=== PATIENT | female | born 1995 | race Caucasian/White ===

== ENCOUNTER 2017-10-26 14:07 | Emergency (ER) | payer BC, MEDICAID, OTHER ==
[~2017-10-26] VITALS: Ht 160 cm; Wt 63.0 kg
[2017-10-26] MEDS ORDERED: CHLORDIAZEPOXIDE 25 MG CAPSULE PO ONE (15:00)
[2017-10-26 15:19] LABS: BASOPHILS # (AUTO) 0.05 x10^3/uL (0-0.3); BASOPHILS % (AUTO) 1 % (0-1); EOSINOPHILS # (AUTO) 0.08 x10^3/uL (0-0.8); EOSINOPHILS % (AUTO) 1 % (1-7); LYMPHOCYTES # (AUTO) 2.61 x10^3/uL (1-6.1); LYMPHOCYTES % (AUTO) 45 % (22-44); MD NO; MEAN CORPUSCULAR HEMOGLOBIN 25.3 pg (27.0-34.8); MEAN CORPUSCULAR HGB CONC 32.5 g/dL (32.4-35.8); MEAN CORPUSCULAR VOLUME 78.1 fL (80-100); MONOCYTES # (AUTO) 0.47 x10^3/uL (0-1.4); MONOCYTES % (AUTO) 8 % (2-9); NEUTROPHILS # (AUTO) 2.64 x10^3/uL (1.8-8.0); NEUTROPHILS % (AUTO) 45 % (42-75); PLATELET COUNT 346 x10^3/uL (130-400); RED BLOOD COUNT 4.77 x10^6/uL (3.82-5.3); RED CELL DISTRIBUTION WIDTH 17.8 % (9.6-15.2)
[2017-10-26] MEDS ORDERED: CHLORDIAZEPOXIDE 25 MG CAPSULE ONE (15:31)
[2017-10-26 15:32] LABS: ALANINE AMINOTRANSFERASE 20 U/L (12-78); ALBUMIN 3.9 g/dL (3.4-5.0); ANION GAP 6 mmol/L (5-15); CALCIUM 8.7 mg/dL (8.5-10.1); CHLORIDE 109 mmol/L (98-107); CREATININE 0.92 mg/dL (0.55-1.02)
[2017-10-26 15:36] LABS: ALKALINE PHOSPHATASE 97 U/L (45-117); BILIRUBIN,TOTAL 0.2 mg/dL (0.2-1.0)
[2017-10-26 18:19] VITALS: BP 97/52
== END 2017-10-26 18:55 | disposition home or self-care (01) ==
LOC: ED 17:53
DX: F10.129 Alcohol abuse with intoxication, unspecified (principal); F19.10 Other psychoactive substance abuse, uncomplicated; Z79.899 Other long term (current) drug therapy
CPT/HCPCS: 36415; 80053; 80307; 84703; 85025; 99284

== ENCOUNTER 2018-01-16 15:40 | Emergency (ER) | payer MEDICAID ==
[~2018-01-16] VITALS: Ht 160 cm; Wt 69.9 kg
[2018-01-16 18:40] VITALS: BP 117/69
== END 2018-01-16 19:15 | disposition home or self-care (01) ==
LOC: ED 17:48
DX: O03.9 Complete or unspecified spontaneous abortion without complication (principal); F17.200 Nicotine dependence, unspecified, uncomplicated
CPT/HCPCS: 36415; 76801; 84702; 86850; 86900; 99285; J2790

== ENCOUNTER 2018-04-06 15:54 | Emergency (ER) | payer MEDICAID ==
[~2018-04-06] VITALS: Ht 160 cm; Wt 71.3 kg
[2018-04-06 15:59] VITALS: BP 119/77
[2018-04-06 16:24] LABS: BASOPHILS # (AUTO) 0.07 x10^3/uL (0-0.3); BASOPHILS % (AUTO) 1 % (0-1); EOSINOPHILS # (AUTO) 0.12 x10^3/uL (0-0.8); EOSINOPHILS % (AUTO) 1 % (1-7); LYMPHOCYTES # (AUTO) 2.04 x10^3/uL (1-6.1); LYMPHOCYTES % (AUTO) 24 % (22-44); MD NO; MEAN CORPUSCULAR HEMOGLOBIN 27.5 pg (27.0-34.8); MEAN CORPUSCULAR HGB CONC 33.3 g/dL (32.4-35.8); MEAN CORPUSCULAR VOLUME 82.6 fL (80-100); MEAN PLATELET VOLUME 8.8 fL (7.4-10.4); MONOCYTES % (AUTO) 8 % (2-9); NEUTROPHILS # (AUTO) 5.45 x10^3/uL (1.8-8.0); NEUTROPHILS % (AUTO) 65 % (42-75); PLATELET COUNT 307 x10^3/uL (130-400); RED BLOOD COUNT 4.51 x10^6/uL (3.82-5.3); RED CELL DISTRIBUTION WIDTH 20.1 % (9.6-15.2)
[2018-04-06] MEDS ORDERED: SODIUM CHLORIDE FLUSH 10ML SYR IVF ONE (16:30)
[2018-04-06] MEDS ORDERED: PRENATAL (16:30)
[2018-04-06] MEDS ORDERED: ONDANSETRON ODT 4 MG PO ONE (16:30)
[2018-04-06] MEDS ORDERED: NITR100C PO (16:30)
[2018-04-06] MEDS ORDERED: SODIUM CHLORIDE 0.9% 1,000ML IVBOLUS ONE (16:30)
[2018-04-06 16:34] LABS: ALANINE AMINOTRANSFERASE 20 U/L (12-78); ALBUMIN 3.2 g/dL (3.4-5.0); ANION GAP 11 mmol/L (5-15); CALCIUM 8.2 mg/dL (8.5-10.1); CHLORIDE 106 mmol/L (98-107)
[2018-04-06] MEDS ORDERED: ONDANSETRON ODT 4 MG ONE (16:35)
[2018-04-06 16:36] LABS: MICROSCOPIC AUTO
[2018-04-06 16:38] LABS: CULTURE INDICATED? YES
[2018-04-06 16:51] LABS: ALKALINE PHOSPHATASE 111 U/L (45-117); BILIRUBIN,TOTAL 0.1 mg/dL (0.2-1.0); TOTAL PROTEIN 7.6 g/dL (6.4-8.2)
[2018-04-06] MEDS ORDERED: CEFTRIAXONE 1,000 MG IM ONE (17:30)
[2018-04-06] MEDS ORDERED: CEFTRIAXONE 1,000 MG ONE (17:41)
== END 2018-04-06 17:56 | disposition home or self-care (01) ==
LOC: ED 17:15
DX: O23.41 Unspecified infection of urinary tract in pregnancy, first trimester (principal); Z3A.09 9 weeks gestation of pregnancy; O21.0 Mild hyperemesis gravidarum
CPT/HCPCS: 36415; 76801; 80053; 81001; 84702; 85025; 87086; 96360; 96372; 99285; J0696; J7030; Q0162

== ENCOUNTER 2018-08-25 07:38 | Emergency (ER) | payer SELFPAY ==
[~2018-08-25] VITALS: Ht 160 cm; Wt 80.1 kg
[~2018-08-25 07:38] MED LIST: NITR100C PO; PRENATAL
[2018-08-25 07:44] VITALS: BP 141/93
--- NOTE | 2018-08-25 07:59 | NUR ---
L & D IN ROOM TO CONFIRM HEART TONES. PROVIDER IN ROOM. PT IN GOWN. AWAITING ORDERS.
[2018-08-25] MEDS ORDERED: ALBUTEROL SULFATE 2.5 MG/3 ML NPPB ONE (08:00)
[2018-08-25] MEDS ORDERED: ALBUTEROL SULFATE 2.5 MG/3 ML ONE (08:23)
== END 2018-08-25 09:16 | disposition home or self-care (01) ==
LOC: ED 09:10
DX: O99.513 Diseases of the respiratory system complicating pregnancy, third trimester (principal); Z3A.29 29 weeks gestation of pregnancy
CPT/HCPCS: 94640; 99283; J7613

== ENCOUNTER 2019-06-03 21:38 | Emergency (ER) | payer MEDICAID ==
[~2019-06-03] VITALS: Ht 160 cm; Wt 73.8 kg
[2019-06-04] MEDS ORDERED: ACETAMINOPHEN 500 MG TABLET ONE (00:20)
[2019-06-04 00:29] LABS: BASOPHILS # (AUTO) 0.03 x10^3/uL (0-0.1); BASOPHILS % (AUTO) 0 % (0-1); EOSINOPHILS # (AUTO) 0.15 x10^3/uL (0-0.4); EOSINOPHILS % (AUTO) 2 % (1-7); LYMPHOCYTES # (AUTO) 3.14 x10^3/uL (1-3.4); LYMPHOCYTES % (AUTO) 36 % (22-44); MD NO; MEAN CORPUSCULAR HEMOGLOBIN 28.6 pg (27.0-34.8); MEAN CORPUSCULAR HGB CONC 32.5 g/dL (32.4-35.8); MEAN PLATELET VOLUME 8.4 fL (7.4-10.4); MONOCYTES # (AUTO) 0.54 x10^3/uL (0.2-0.8); MONOCYTES % (AUTO) 6 % (2-9); NEUTROPHILS # (AUTO) 4.77 x10^3/uL (1.8-6.8); NEUTROPHILS % (AUTO) 55 % (42-75); PLATELET COUNT 342 x10^3/uL (130-400); RED BLOOD COUNT 4.23 x10^6/uL (3.82-5.3); RED CELL DISTRIBUTION WIDTH 21.4 % (9.6-15.2)
[2019-06-04] MEDS ORDERED: ACETAMINOPHEN 500 MG TABLET PO ONE (00:30)
--- NOTE | 2019-06-04 00:37 | NUR ---
jamar rn: pt in [place] via [facility].
[2019-06-04 00:39] LABS: ALBUMIN 3.4 g/dL (3.4-5.0); ANION GAP 6 mmol/L (5-15); CALCIUM 9.6 mg/dL (8.5-10.1); CHLORIDE 107 mmol/L (98-107); CREATININE 0.76 mg/dL (0.55-1.02)
[2019-06-04] MEDS ORDERED: RHOGAM FROM BLOOD BANK 1 NOTE EA IM/IV ONE (01:00)
[2019-06-04] MEDS ORDERED: ONDANSETRON ODT 4 MG ONE (01:08)
--- NOTE | 2019-06-04 01:14 | NUR ---
Break RN: Pt medicated per SEP for ORR. Pt now requesting Zofran--discussed with ERP and order received. Verified with ERP that Rhogam is to be given. Blood bank aware. Report given to primary RN.
--- NOTE | 2019-06-04 01:27 | NUR ---
Blood consent signed and given to prior to rhogam. Rhogam given per sep.
[2019-06-04] MEDS ORDERED: ONDANSETRON ODT 4 MG PO ONE (01:30)
[2019-06-04 01:58] LABS: MICROSCOPIC AUTO
[2019-06-04 01:59] LABS: CULTURE INDICATED? YES
[2019-06-04] MEDS ORDERED: CEFDINIR 300 MG CAPSULE ONE (03:27)
[2019-06-04] MEDS ORDERED: CEFDINIR 300 MG CAPSULE PO ONE (03:30)
[2019-06-04 04:17] VITALS: BP 126/76
== END 2019-06-04 04:20 | disposition home or self-care (01) ==
LOC: ED 06-04 00:17
DX: O20.0 Threatened abortion (principal); O23.11 Infections of bladder in pregnancy, first trimester; Z87.891 Personal history of nicotine dependence; Z3A.09 9 weeks gestation of pregnancy
CPT/HCPCS: 36415; 76801; 80048; 81001; 82040; 84702; 85025; 86850; 86900; 87086; 87491; 87591; 96372; 99284; J2790; Q0162

== ENCOUNTER 2020-01-19 09:47 | Inpatient (IN) | payer MEDICAID ==
[~2020-01-19] VITALS: Ht 160 cm; Wt 79.6 kg
--- NOTE | 2020-01-19 10:16 | NUR ---
PT HAS BEEN USING HEROIN FOR 3 WEEKS EVERY DAYS. BEEN OUT OF HEROIN FOR 4 DAYS, USING METH, ALCOHOL, OXY AND XANAX PAST FEW DAYS. PT STATES SHE RAN OUT, HAS BEEN USING THE RESIDUE OFF COTTON BALLS FROM [employer]. PT STATES I HAVE "COTTON FEVER". ALSO HAD A BABY 1 MONTH. SYMPTOMS OF CHEST PAIN, WEAKNESS, GI N/V
[2020-01-19] MEDS ORDERED: LORazepam 2 MG/ML, 1ML ONE (10:24)
[2020-01-19] MEDS ORDERED: ONDANSETRON 2MG/ML, 2ML ONE (10:25)
[2020-01-19] MEDS ORDERED: LORazepam 2 MG/ML, 1ML IVPush ONE (10:30)
[2020-01-19] MEDS ORDERED: SODIUM CHLORIDE 0.9% 1,000ML IVBOLUS ONE ×2 (10:30→11:30)
[2020-01-19] MEDS ORDERED: ONDANSETRON 2MG/ML, 2ML IVPush ONE (10:30)
--- NOTE | 2020-01-19 10:56 | NUR ---
IV ESTABLISHED, MEDICATED PER ORDERS. APPEALS BOARD REFEREE IN PLACE. PT NOT IN RESP DISTRESS.
[2020-01-19 11:02] LABS: ALANINE AMINOTRANSFERASE 127 U/L (12-78); ALBUMIN 3.1 g/dL (3.4-5.0); ANION GAP 7 mmol/L (5-15); CALCIUM 9.4 mg/dL (8.5-10.1); CHLORIDE 109 mmol/L (98-107)
[2020-01-19 11:07] LABS: ALKALINE PHOSPHATASE 175 U/L (45-117); BILIRUBIN,TOTAL 0.6 mg/dL (0.2-1.0); CREATININE 1.28 mg/dL (0.55-1.02); TOTAL PROTEIN 6.8 g/dL (6.4-8.2); TROPONIN I < 0.015 ng/mL (0.000-0.045)
[2020-01-19] MEDS ORDERED: IBUPROFEN 200 MG TABLET PO ONE (11:30)
[2020-01-19] MEDS ORDERED: IBUPROFEN 600 MG TABLET ONE (11:31)
[2020-01-19 11:36] LABS: MEAN CORPUSCULAR HEMOGLOBIN 24.8 pg (27.0-34.8); MEAN CORPUSCULAR HGB CONC 30.8 g/dL (32.4-35.8); MEAN CORPUSCULAR VOLUME 80.3 fL (80-100); MEAN PLATELET VOLUME 7.3 fL (7.4-10.4); PLATELET COUNT 174 x10^3/uL (130-400); RED BLOOD COUNT 3.64 x10^6/uL (3.82-5.3); RED CELL DISTRIBUTION WIDTH 18.2 % (9.6-15.2)
--- NOTE | 2020-01-19 11:38 | NUR ---
WBC 0.9. MD AWARE POC TO ADMIT
[2020-01-19] MEDS ORDERED: VANCOMYCIN PER PHARMACY MC ONE (12:00)
[2020-01-19] MEDS ORDERED: PIPERACILLIN/TAZO/PMX 3.375GM 50 ML IVPB ONE (12:00)
--- NOTE | 2020-01-19 12:01 | NUR ---
UA SENT, PT BEING SWABBED FOR COVID. PRECAUTIONS IN PLACE. DARCI DARD[facility] AT BEDSIDE.
[2020-01-19 12:22] LABS: MD YES
[2020-01-19] MEDS ORDERED: PIPERACILLIN/TAZO/PMX 3.375GM 50 ML ONE (12:24)
[2020-01-19 12:28] LABS: BAND#(MANUAL) 0.15 x10^3/uL; BANDS%(MANUAL) 17 % (0-7); EOS#(MANUAL) 0.02 x10^3/uL (0.0-0.4); EOS% (MANUAL) 2 % (1-7); LYMPH#(MANUAL) 0.14 x10^3/uL (1-3.4); LYMPHS% (MANUAL) 15 % (22-44); NRBC % (MANUAL) 1 % (0-1); SEG#(MANUAL) 0.59 x10^3/uL (1.8-6.8); SEGS% (MANUAL) 66 % (42-75)
[2020-01-19 12:29] LABS: ANISOCYTOSIS 1+; HYPOCHROMIA 1+; MICROCYTOSIS 1+
[2020-01-19 12:29] LABS: MICROSCOPIC AUTO
[2020-01-19 12:30] LABS: <PLATELET ESTIMATE> ADEQUATE; <PLT MORPHOLOGY> NORMAL PLT MORPH; POLYCHROMASIA 1+
[2020-01-19] MEDS ORDERED: LORazepam 1MG TABLET PO PRN ×2 (12:30)
[2020-01-19] MEDS ORDERED: LORazepam 0.5MG TABLET PO PRN (12:30)
[2020-01-19] MEDS ORDERED: ONDANSETRON 2MG/ML, 2ML IVPush PRN (12:30)
[2020-01-19] MEDS: AMPICILLIN/SULBACTAM 3 GM in SODIUM CHLORIDE 0.9% 100 ML IV SCH ×2 (12:30→18:30)
[2020-01-19] MEDS ORDERED: LORazepam 2 MG/ML, 1ML IV PRN ×3 (12:30)
[2020-01-19] MEDS ORDERED: ONDANSETRON ODT 4 MG PO PRN (12:30)
[2020-01-19] MEDS ORDERED: VANCOMYCIN 1,800 MG in SODIUM CHLORIDE 0.9% 250 ML IV ONE (12:30)
[2020-01-19] MEDS ORDERED: VANCOMYCIN PER PHARMACY MC PRN (12:30)
[2020-01-19] MEDS ORDERED: POTASSIUM CHLORIDE 20 MEQ TAB.ER.PRT PO ONE (12:30)
[2020-01-19 12:50] LABS: C-REACTIVE PROTEIN, QUANT 1.7 mg/dL (0.02-0.49)
[2020-01-19] MEDS ORDERED: ENOXAPARIN 40 MG/0.4 ML ONE (13:01)
[2020-01-19] MEDS ORDERED: POTASSIUM CHLORIDE 20 MEQ TAB.ER.PRT ONE (13:01)
--- NOTE | 2020-01-19 13:02 | NUR ---
US AT BEDSIDE.
[2020-01-19] MEDS: ENOXAPARIN 40 MG/0.4 ML SQ SCH (13:09)
--- NOTE | 2020-01-19 13:58 | NUR ---
PT RESTING, VSS. CALL LIGHT IN REACH. VANCO INFUSING.
[2020-01-19] MEDS ORDERED: PHARMACOKINETIC CONSULTATION MC ONE (15:00)
[2020-01-19] MEDS ORDERED: PHARMACOKINETIC MONITORING MC PRN (15:00)
[2020-01-19] MEDS: SODIUM CHLORIDE 0.9% 1,000 ML IV SCH (15:22)
[2020-01-19] MEDS ORDERED: ACETAMINOPHEN 325 MG TABLET ONE (15:27)
[2020-01-19] MEDS: ACETAMINOPHEN 325 MG TABLET PO PRN (15:29)
--- NOTE | 2020-01-19 15:47 | NUR ---
PT ON HOSPITAL BED FOR COMFORT. AMBULATED TO BS. VSS
--- NOTE | 2020-01-19 16:30 | NUR ---
PT RESTING, ADDED 2L O2 WHILE SLEEPING. CALL LIGHT IN REACH
--- NOTE | 2020-01-19 17:19 | NUR ---
PT SLEEPING, CALL LIGHT IN REACH. VSS.
--- NOTE | 2020-01-19 17:22 | NUR ---
PT GIVEN MEAL TRAY
--- NOTE | 2020-01-19 18:49 | NUR ---
REPORT TO ARLINE
--- NOTE | 2020-01-19 18:53 | NUR ---
Report from PARK Wheeler. This RN to assume care. Patient eating at this time.
[2020-01-19 22:10] VITALS: BP 105/67
[2020-01-20 00:39] VITALS: BP 107/68
[2020-01-20] MEDS: AMPICILLIN/SULBACTAM 3 GM in SODIUM CHLORIDE 0.9% 100 ML IV SCH ×4 (00:39→18:30)
[2020-01-20 05:57] LABS: CHLORIDE 112 mmol/L (98-107)
[2020-01-20 06:08] LABS: % IRON SATURATION 3 % (20-55); ALANINE AMINOTRANSFERASE 160 U/L (12-78); ALBUMIN 2.3 g/dL (3.4-5.0); ALKALINE PHOSPHATASE 145 U/L (45-117); ANION GAP 8 mmol/L (5-15); BILIRUBIN,TOTAL 0.7 mg/dL (0.2-1.0); CALCIUM 7.2 mg/dL (8.5-10.1); IRON LEVEL 10 mcg/dL (50-170); TOTAL IRON BINDING CAPACITY 343 mcg/dL (250-450); TOTAL PROTEIN 5.5 g/dL (6.4-8.2)
[2020-01-20] MEDS: SODIUM CHLORIDE 0.9% 1,000 ML IV SCH (06:09)
[2020-01-20 06:43] LABS: MEAN CORPUSCULAR HGB CONC 31.1 g/dL (32.4-35.8); MEAN CORPUSCULAR VOLUME 80.2 fL (80-100); PLATELET COUNT 118 x10^3/uL (130-400); RED BLOOD COUNT 3.15 x10^6/uL (3.82-5.3); RED CELL DISTRIBUTION WIDTH 18.4 % (9.6-15.2)
[2020-01-20 07:23] LABS: MD YES
[2020-01-20 07:25] LABS: BAND#(MANUAL) 3.05 x10^3/uL; BANDS%(MANUAL) 35 % (0-7); LYMPH#(MANUAL) 0.78 x10^3/uL (1-3.4); LYMPHS% (MANUAL) 9 % (22-44); MONOS#(MANUAL) 0.35 x10^3/uL (0.3-2.7); MONOS% (MANUAL) 4 % (2-9); SEG#(MANUAL) 4.52 x10^3/uL (1.8-6.8); SEGS% (MANUAL) 52 % (42-75)
[2020-01-20 07:26] LABS: ANISOCYTOSIS 1+; HYPOCHROMIA 1+; MICROCYTOSIS 1+
[2020-01-20 07:27] LABS: <PLATELET ESTIMATE> DECREASED; <PLT MORPHOLOGY> NORMAL PLT MORPH
[2020-01-20 08:00] VITALS: BP 109/70
[2020-01-20] MEDS ORDERED: VANCOMYCIN 1,500 MG in SODIUM CHLORIDE 0.9% 250 ML IV SCH ×2 (08:00→20:00)
[2020-01-20] MEDS: ACETAMINOPHEN 325 MG TABLET PO PRN (10:10)
[2020-01-20] MEDS ORDERED: MAGNESIUM SULFATE PMX 2GM/50ML 50 ML IV ONE (11:00)
[2020-01-20] MEDS: ENOXAPARIN 40 MG/0.4 ML SQ SCH (11:18)
[2020-01-20 12:11] VITALS: BP 113/75
[2020-01-20] MEDS ORDERED: OMNIPAQUE 350 MG/ML, 100ML BOTTLE ONE (12:16)
[2020-01-20] MEDS ORDERED: BUTALB/APAP/CAFFEINE 50MG/325MG/40MG ONE (14:07)
[2020-01-20] MEDS ORDERED: BUTALB/APAP/CAFFEINE 50MG/325MG/40MG PO PRN (14:30)
[2020-01-20 18:10] LABS: AMPHETAMINE SCREEN, URINE Positive (Negative); BARBITURATE SCREEN, URINE Negative (Negative); BENZODIAZEPINE SCREEN, URINE Negative (Negative); CANNABINOID SCREEN, URINE Negative (Negative); COCAINE SCREEN, URINE Negative (Negative); METHADONE SCREEN, URINE Negative (Negative); OPIATE SCREEN, URINE Positive (Negative)
== END 2020-01-20 18:54 | disposition left against medical advice (07) | DRG 872 ==
LOC: ED 12:08 → EDIP 12:10 → 4NE 22:04
PROVIDERS: ADMIT Internal Medicine; ATTEND Internal Medicine
DX: A41.9 Sepsis, unspecified organism (principal); N17.9 Acute kidney failure, unspecified; E87.6 Hypokalemia; F15.90 Other stimulant use, unspecified, uncomplicated; D70.9 Neutropenia, unspecified; Z20.828 Contact with and (suspected) exposure to other viral communicable diseases; D64.9 Anemia, unspecified; Z53.29 Procedure and treatment not carried out because of patient's decision for other reasons; Z82.3 Family history of stroke; Z80.3 Family history of malignant neoplasm of breast; Z87.891 Personal history of nicotine dependence
CPT/HCPCS: 36415; 70450; 71045; 71275; 74177; 76700; 76830; 80053; 80074; 80307; 81001; 82728; 83540; 83550; 83605; 83615; 83690; 83735; 83880; 84145; 84484; 84703; 85025; 85379; 86140; 87040; 87635; 87806; 93005; 96361; 96374; 96375; 99285; G0378; J0295; J1650; J2405; J2543; J3370; Q9967; G0475; J2060; J3475; J7030; J7050